=== PATIENT | female | born 1935 | race Asian ===

== ENCOUNTER 2019-06-05 11:45 | Inpatient (IN) | payer OTHER, BC ==
[2019-06-05] VITALS (16 sets, daily range): BP systolic 126–185; BP diastolic 71–88; TEMP 98.1–98.9; BMI 16.7
[~2019-06-05] VITALS: Ht 157.5 cm; Wt 44.6 kg
[~2019-06-05 11:45] MED LIST: CLON0.5T36 PO; DIAZ2TAB PO; DONE5TAB PO; ENAL10TA PO; ESCI10TA PO; FURO20TA67 PO; MAGNSUS68 PO; MEMA5TAB PO; RISP0.25 PO; TYLENOL325 MG PO
[2019-06-05] MEDS ORDERED: ONDANSETRON4 M2 PO (16:53)
[2019-06-06] VITALS (16 sets, daily range): BP systolic 139–193; BP diastolic 77–104; TEMP 97.6–99.6; Ht 157.5 cm; Wt 44.6 kg
[2019-06-06 06:14] LABS: POTASSIUM 3.9 mmol/L (3.6-5.2)
[2019-06-06 08:26] LABS: PLATELET COUNT 548 K/uL (152-353)
[2019-06-07 04:00] VITALS: BP 190/92; TEMP 99.4
[2019-06-07 05:20] LABS: PLATELET COUNT 509 K/uL (152-353)
[2019-06-07 05:45] LABS: POTASSIUM 3.4 mmol/L (3.6-5.2)
[2019-06-07 08:00] VITALS: BP 182/96; TEMP 98.5
[2019-06-07 12:00] VITALS: BP 200/107; TEMP 98.6
== END 2019-06-07 14:00 | disposition other institution (70) | DRG 689 ==
LOC: ICU 11:45 → MED/SURG 06-06 10:33
PROVIDERS: ADMIT Family Medicine
DX: N10 Acute pyelonephritis (principal); I26.99 Other pulmonary embolism without acute cor pulmonale; D53.9 Nutritional anemia, unspecified; E86.0 Dehydration; M10.9 Gout, unspecified; I50.9 Heart failure, unspecified; R62.7 Adult failure to thrive; R41.81 Age-related cognitive decline; R73.9 Hyperglycemia, unspecified; I11.0 Hypertensive heart disease with heart failure
CPT/HCPCS: 36415; 80053; 81000; 82550; 83880; 84484; 85007; 85027; 87088; J0696; J1200; J1650; J1885; J1940; J2930; J3490; Q9963